=== PATIENT | female | born 1955 ===

== ENCOUNTER 2017-01-04 21:10 | Emergency (ER) | payer BC, OTHER ==
[~2017-01-04] VITALS: Ht 157.5 cm; Wt 64.5 kg
[~2017-01-04 21:10] MED LIST: ASPEC81 PO; ATEN-173 PO; CALCTAB5 PO; CETICHW4 PO; FLUT0.0529 NAE; MAGN250T3 PO; MULT-663 PO; ZNTT/150 PO
[2017-01-04 21:13] VITALS: TEMP 37; Ht 157.5 cm; Wt 64.5 kg
[2017-01-04 21:20] VITALS: O2SAT 96
[2017-01-04] MEDS ORDERED: ADENOSINE IV SOLN 3 MG/ML 2 ML VIAL IV ONE (21:26)
[2017-01-04] MEDS ORDERED: SODIUM CHLORIDE 0.9% 1000ML 1,000 ML IV STA (21:28)
[2017-01-04] MEDS ORDERED: ADENOSINE IV SOLN 3 MG/ML 2 ML VIAL IV STA ×2 (21:28)
[2017-01-04 21:44] LABS: BASO % 0.3 %; BASO ABS # 0.03 K/uL (0-0.2); COMPLETE YES; EOS % 1.6 %; HEMATOCRIT 44.8 % (37-47); IG% 0.2 %; LYMPH % 40.9 %; LYMPH ABS # 4.26 K/uL (1.2-3.4); MEAN CELL VOLUME 84.7 fL (80-100); MEAN CORPUSCULAR HEMOGLOBIN 29.1 pg (25-34); MEAN CORPUSCULAR HGB CONC 34.4 g/dl (32-36); MEAN PLATELET VOLUME 10.2 fL (7.4-10.4); PLATELET COUNT 286 K/uL (130-400); RED BLOOD COUNT 5.29 M/uL (4.2-5.4); WHITE BLOOD COUNT 10.42 K/uL (4.8-10.8)
--- NOTE | 2017-01-04 21:47 | DIAGNOSTIC IMAGING REPORT ---
CHEST ONE VIEW PORTABLE CLINICAL HISTORY: CHEST PAIN dyspnea COMPARISON STUDY: No previous studies for comparison. FINDINGS: The bones soft tissues and hemidiaphragms are normal. The cardiomediastinal silhouette is normal. The lungs are clear. The pulmonary vasculature is normal. IMPRESSION: Negative chest. Electronically signed by: Luis Eduardo Nino M.D. 01/04/2017 9:46 PM Dictated Date/Time: 01/04/2017 9:45 PM
[2017-01-04 22:01] LABS: ALT/SGPT 46 U/L (12-78); BLOOD UREA NITROGEN 13 mg/dl (7-18); BUN/CREATININE RATIO 13.4 (10-20); CALCIUM 9.1 mg/dl (8.5-10.1); CARBON DIOXIDE 25 mmol/L (21-32); CHLORIDE 103 mmol/L (98-107); GLUCOSE 104 mg/dl (70-99); POTASSIUM 3.4 mmol/L (3.5-5.1); SODIUM 140 mmol/L (136-145)
[2017-01-04 22:06] LABS: ALKALINE PHOSPHATASE 93 U/L (45-117); AST/SGOT 19 U/L (15-37); CKMB/CK RATIO 1.4 (0-3.0)
[2017-01-04] MEDS ORDERED: CALC1TAB9 PO (22:10)
[2017-01-04] MEDS ORDERED: ASPI81TA28 PO (22:11)
[2017-01-04] MEDS ORDERED: POTA10CA28 PO (22:12)
--- NOTE | 2017-01-04 22:14 | EMERGENCY ROOM VISIT NOTE ---
History Report prepared by Althea: Sharmin Royal Under the Supervision of: Dr. Anam Torres M.D. First contact with patient: 21:24 Chief Complaint: PALPITATIONS Stated Complaint: PALPITATIONS SVT History of Present Illness The patient is a 61 year old female who presents to the Emergency Room with complaints of persistent palpitations that started 1.5 hours ago around 2009. She states that she felt her heart racing. The patient tried multiple methods to stop the palpitations without medication. She took 25 mg of Atenolol 30-45 minutes [employer]. In the past, the palpitations were resolved with adenosine. The patient follows with Dr. Cavazos and she states that they were not going to do an ablation because the episodes were so infrequent. The patient had a cold a few days ago, but did not take anything for it. Source of History: patient Onset: 1.5 hours ago around 2009 Position: chest Quality: other (palpitations) Timing: other (persistent) Modifying Factors (Relieving): other (None) Review of Systems See HPI for pertinent positives & negatives. A total of 10 systems reviewed and were otherwise negative. Past Medical & Surgical Medical Problems: (1) Palpitations (2) Paroxysmal supraventricular tachycardia Family History Heart disease Social History Smoking Status: Never Smoker Marital Status: Housing Status: lives with family Occupation Status: employed Current/Historical Medications Scheduled Aspirin (Aspirin Ec), 81 MG PO 1-3 TIMES A WEEK Calcium Citrate-Vitamin D (Citracal + D3 Maximum), 1 TAB PO BID Magnesium (Magnesium 250 mg), 250 MG PO DAILY Potassium Chloride (Micro-K Ext Rel), 10 MEQ PO QAM Scheduled PRN Atenolol (Tenormin), 25 MG PO UD PRN for SVT Ranitidine (Zantac), 150 MG PO DAILY PRN for REFLUX Allergies Coded Allergies: Epinephrine (Verified Allergy, Unknown, CAN'T HAVE R/T HX OF SVT, 01/04/17) Penicillins (Verified Allergy, Unknown, RASH, 01/04/17) Physical Exam Vital Signs Date Time Temp Pulse Resp B/P Pulse Ox O2 Delivery O2 Flow Rate FiO2 01/04/17 22:50 68 16 91/66 97 01/04/17 22:25 66 14 01/04/17 22:15 67 23 90/60 99 01/04/17 22:00 68 97 01/04/17 21:58 88/61 01/04/17 21:55 68 98 01/04/17 21:50 68 96 01/04/17 21:45 69 96 01/04/17 21:40 69 96 01/04/17 21:39 71 01/04/17 21:35 66 95 01/04/17 21:35 66 95 01/04/17 21:33 108/68 01/04/17 21:30 180 103/73 01/04/17 21:30 167 01/04/17 21:25 Room Air 01/04/17 21:20 96 Room Air 01/04/17 21:13 37.0 185 20 85/62 99 Room Air Physical Exam GENERAL: Patient is a healthy-appearing well-nourished HEAD: Normocephalic atraumatic EYES: Ocular movements intact pupils equal and react to light OROPHARYNX mucous membranes are moist no exudates present no erythema or edema present NECK: Supple no nuchal rigidity CHEST: Good equal expansion LUNGS: Clear and equal to auscultation CARDIAC: Normal S1 and S2 ABDOMEN: Soft nontender no guarding BACK: No CVA tenderness EXTREMITIES: No pain upon palpation normal muscle strength in all groups no clubbing cyanosis or edema NEURO: Patient is following commands is answering questions appropriately. Alert and oriented x3 Cranial Nerves 2-12 grossly intact Medical Decision & Procedures ER Provider Diagnostic Interpretation: X-ray results as stated below per interpretation by me and the radiologist: CHEST ONE VIEW PORTABLE IMPRESSION: Negative chest. Electronically signed by: Luis Eduardo Nino M.D. 01/04/2017 9:46 PM Dictated Date/Time: 01/04/2017 9:45 PM Laboratory Results 01/04/17 21:30 Red Blood Count 5.29, Mean Corpuscular Volume 84.7, Mean Corpuscular Hemoglobin 29.1, Mean Corpuscular Hemoglobin Concent 34.4, Mean Platelet Volume 10.2, Neutrophils (%) (Auto) 50.0, Lymphocytes (%) (Auto) 40.9, Monocytes (%) (Auto) 7.0, Eosinophils (%) (Auto) 1.6, Basophils (%) (Auto) 0.3, Neutrophils # (Auto) 5.21, Lymphocytes # (Auto) 4.26, Monocytes # (Auto) 0.73, Eosinophils # (Auto) 0.17, Basophils # (Auto) 0.03 01/04/17 21:30 Test 01/04/17 21:30 White Blood Count 10.42 K/uL (4.8-10.8) Red Blood Count 5.29 M/uL (4.2-5.4) Hemoglobin 15.4 g/dL (12.0-16.0) Hematocrit 44.8 % (37-47) Mean Corpuscular Volume 84.7 fL (80-100) Mean Corpuscular Hemoglobin 29.1 pg (25-34) Mean Corpuscular Hemoglobin Concent 34.4 g/dl (32-36) Platelet Count 286 K/uL (130-400) Mean Platelet Volume 10.2 fL (7.4-10.4) Neutrophils (%) (Auto) 50.0 % Lymphocytes (%) (Auto) 40.9 % Monocytes (%) (Auto) 7.0 % Eosinophils (%) (Auto) 1.6 % Basophils (%) (Auto) 0.3 % Neutrophils # (Auto) 5.21 K/uL (1.4-6.5) Lymphocytes # (Auto) 4.26 K/uL (1.2-3.4) Monocytes # (Auto) 0.73 K/uL (0.11-0.59) Eosinophils # (Auto) 0.17 K/uL (0-0.5) Basophils # (Auto) 0.03 K/uL (0-0.2) RDW Standard Deviation 41.7 fL (36.4-46.3) RDW Coefficient of Variation 13.6 % (11.5-14.5) Immature Granulocyte % (Auto) 0.2 % Immature Granulocyte # (Auto) 0.02 K/uL (0.00-0.02) Anion Gap 12.0 mmol/L (3-11) Est Creatinine Clear Calc Drug Dose 52.1 ml/min Estimated GFR () 70.4 Estimated GFR (Non- 60.8 BUN/Creatinine Ratio 13.4 (10-20) Calcium Level 9.1 mg/dl (8.5-10.1) Total Bilirubin 0.3 mg/dl (0.2-1) Direct Bilirubin < 0.1 mg/dl (0-0.2) Aspartate Amino Transf (AST/SGOT) 19 U/L (15-37) Alanine Aminotransferase (ALT/SGPT) 46 U/L (12-78) Alkaline Phosphatase 93 U/L (45-117) Total Creatine Kinase 79 U/L (26-192) Creatine Kinase MB 1.1 ng/ml (0.5-3.6) Creatine Kinase MB Ratio 1.4 (0-3.0) Troponin I < 0.015 ng/ml (0-0.045) Total Protein 7.1 gm/dl (6.4-8.2) Albumin 3.6 gm/dl (3.4-5.0) Lipase 290 U/L (73-393) Labs reviewed by ED physician. Medications Administered Medications (Trade) Dose Ordered Sig/Noni Route Start Time Stop Time Status Last Admin Dose Admin Adenosine 6 mg 6 mg NOW STAT IV 01/04/17 21:28 01/04/17 21:30 DC 01/04/17 21:33 6 MG Sodium Chloride (Nss 1000ml) 1,000 ml @ 999 mls/hr Q1H1M STAT IV 01/04/17 21:28 01/04/17 22:28 DC 01/04/17 21:34 999 MLS/HR Potassium Chloride (Klor-Con M10) 40 meq NOW STAT PO 01/04/17 22:19 01/04/17 22:20 DC 01/04/17 22:27 40 MEQ ECG Indication: palpitations Rate (beats per minute): 178 Rhythm: SVT Findings: ST depression (diffuse), no ectopy Change: Second EKG on 01/04/2017 showed a sinus rhythm, rate of 73, no ectopy, no acute ischemic change ED Course 2125: Past medical records reviewed. The patient was evaluated in room B1. A complete history and physical examination was performed. 2127: Sodium Chloride 1000 ml @ 999 mls/hr IV, Adenosine 6 mg IV 0: The patient was given 6 mg of Adenosine at this time. 2130: The patient returned to a sinus rhythm with a decreased rate and a repeat EKG was performed. 9: Ordered Potassium Chloride 40 meq PO 2235: Upon reexamination the patient is doing well. I discussed results and treatment plan with the patient. She verbalizes agreement and understanding. The patient is ready for discharge. Medical Decision Differential diagnosis: Etiologies such as premature contractions, electrolyte abnormality, cardiac dysrhythmia, thyroid dysfunction, pulmonary embolism, infection, gastrointestinal, as well as others were entertained. This is a 61-year-old female who presents emergency department complaining of SVT. The patient has been in it in the past. She tried vagal maneuvers with no success. She was given 6 mg of adenosine in the emergency department with complete cardioversion. The patient has are retaken her beta vivi at home. Based on these findings the patient was given potassium to replete her potassium. I do believe she is well enough to be discharged for follow-up with Dr. Cavazos's office. Patient was in agreement with the treatment plan. Impression Primary Impression: Paroxysmal supraventricular tachycardia Additional Impression: Hypokalemia Scribe Attestation The scribe's documentation has been prepared under my direction and personally reviewed by me in its entirety. I confirm that the note above accurately reflects all work, treatment, procedures, and medical decision making performed by me. Departure Information Dispostion Home / Self-Care Referrals Shanique Flores M.D. (PCP) Forms HOME CARE DOCUMENTATION FORM, IMPORTANT VISIT INFORMATION, WORK / SCHOOL INSTRUCTIONS Patient Instructions My [facility], Treatment for Supraventricular Tachycardia SVT, Understanding Supraventricular Tachycardia SVT Additional Instructions Follow up with DR Cavazos's office You have been examined and treated today on an emergency basis only. This is not a substitute for, or an effort to provide, complete comprehensive medical care. It is impossible to recognize and treat all injuries or illnesses in a single emergency department visit. It is therefore important that you follow up closely with Dr Flores. Call as soon as possible for an appointment. Thank you for your time and consideration. I look forward to speaking with you again soon. Please don't hesitate to call us if you have any questions. Problem Qualifiers
[2017-01-04] MEDS ORDERED: POTASSIUM CHLORIDE 10 MEQ TABCR PO STA (22:19)
[2017-01-04 22:50] VITALS: BP 91/66; PULSE 68; O2SAT 97
== END 2017-01-04 22:51 | disposition home or self-care (01) ==
LOC: C.EDB 21:11
DX: I47.1 Supraventricular tachycardia (principal); E87.6 Hypokalemia; Z79.82 Long term (current) use of aspirin; Z79.899 Other long term (current) drug therapy; Z88.0 Allergy status to penicillin; Z88.8 Allergy status to other drugs, medicaments and biological substances; Z82.49 Family history of ischemic heart disease and other diseases of the circulatory system

== ENCOUNTER → 2018-01-16 | Outpatient (CLI) | payer BC ==
[~2018-01-16] MED LIST changes: -ASPEC81 PO; +ASPI81TA28 PO; +CALC1TAB9 PO; -CALCTAB5 PO; -CETICHW4 PO; -FLUT0.0529 NAE; -MULT-663 PO; +POTA10CA28 PO; +RANI150T85 PO; -ZNTT/150 PO
--- NOTE | 2018-01-16 15:18 | MAMMOGRAPHY REPORT ---
BILATERAL DIGITAL SCREENING MAMMOGRAM TOMOSYNTHESIS WITH CAD: 01/16/2018 CLINICAL HISTORY: Routine screening. TECHNIQUE: Breast tomosynthesis in addition to standard 2D mammography was performed. Current study was also evaluated with a Computer Aided Detection (CAD) system. COMPARISON: Comparison is made to exams dated: 06/10/2013 mammogram, 05/28/2012 mammogram, 04/25/2011 ma mmogram, 04/12/2010 mammogram - [facility], 05/25/2009, and 04/28/2008. BREAST COMPOSITION: There are scattered areas of fibroglandular density in both breasts. FINDINGS: No suspicious masses, calcifications, or areas of architectural distortion are noted in ei ther breast. There has been no significant interval change compared to prior exams. Scattered bilate ral benign-appearing calcifications are again noted. IMPRESSION: ACR BI-RADS CATEGORY 2: BENIGN There is no mammographic evidence of malignancy. A 1 year screening mammogram is recommended. The pa tient will receive written notification of the results. Approximately 10% of breast cancers are not detected with mammography. A negative mammographic report should not delay biopsy if a clinically suggestive mass is present. Anamaria Lomax M.D. ah/:01/16/2018 14:42:49 Undertaker Helper: Ankur ANGUIANO(R)(M), [facility] letter sent: Normal 1/2 BI-RADS Code: ACR BI-RADS Category 2: Benign
== END | disposition home or self-care (01) ==
LOC: C.MAMM 10:58
PROVIDERS: ATTEND Family Medicine
DX: Z12.31 Encounter for screening mammogram for malignant neoplasm of breast (principal)